=== PATIENT | male | born 1955 | race Two or more races ===

== ENCOUNTER 2018-03-18 13:47 | Observation (INO) | payer BC ==
[~2018-03-18] VITALS: Ht 167.6 cm; Wt 95.3 kg
[~2018-03-18 13:47] MED LIST: FLAGYL250 MG PO; LEVAQUIN500 MG PO; TYLENOL WITH C1 EACH PO
[2018-03-18] MEDS ORDERED: SODIUM CHLORIDE 0.9% 1000ML 1,000 ML IV STA (14:00)
[2018-03-18] MEDS ORDERED: ONDANSETRON HCL INJ 2 MG/ML VIAL IV STA (14:00)
[2018-03-18] MEDS ORDERED: MORPHINE SULFATE INJ 4 MG/ML INJ IV STA (14:00)
[2018-03-18] MEDS ORDERED: DIATRIZOATE MEGL/DIATRIZOA SOD 30 ML BTL PO ONE (14:06)
[2018-03-18 14:27] LABS: CLARITY,URINE SL CLOUDY (CLEAR); COLOR,URINE YELLOW (YELLOW); KETONES,URINE TRACE (NEGATIVE); LEUKOCYTE ESTERASE ,URINE TRACE (NEGATIVE); NITRITE,URINE NEGATIVE (NEGATIVE); PROTEIN,URINE DIPSTICK 2+ (NEGATIVE)
[2018-03-18 14:28] LABS: BILIRUBIN,URINE 1+ (NEGATIVE); URINE UROBILINOGEN 1 mg/dL (0.2 - 1)
[2018-03-18 14:43] LABS: BACTERIA,URINE MODERATE /HPF; EPITHELIAL CELLS,URINE FEW /LPF; MUCUS,URINE MANY (RARE); WBC,URINE (MAN) 21-50 /HPF (0-5)
--- NOTE | 2018-03-18 14:50 | Diagnostic Imaging Report ---
Examination: Single AP view of the chest. COMPARISON: None INDICATION: Abdominal pain DISCUSSION: Lines/tubes: None. Lungs: Central venous congestion. No edema. No pneumonia. Pleura: No pleural effusion or pneumothorax. Heart and mediastinum: Prominent heart size. Mildly tortuous aorta. Bones and soft tissues: No acute bony abnormalities. IMPRESSION: 1. No acute cardiopulmonary abnormalities. Signed by: Dr. Reg Méndez M.D. on 03/18/2018 2:47 PM
[2018-03-18 15:03] LABS: BASOPHILS % 0.2 % (0.0-1.0); EOSINOPHILS % 0.2 % (0.0-6.0); HEMATOCRIT 56.3 % (38.2-49.6); HEMOGLOBIN 17.7 g/dL (14.0-18.0); LYMPHOCYTES # (AUTO) 1.2 (1.0-3.2); LYMPHOCYTES % 10.7 % (18.0-39.1); MEAN CORPUSCULAR HGB CONC 31.4 g/dL (31-35); MEAN CORPUSCULAR VOLUME 69.9 fL (81-99); MONOCYTES % 8.7 % (4.4-11.3); NEUTROPHILS % 79.9 % (38.7-80.0); PLATELET COUNT 209 x10e3/uL (140-360); RED BLOOD COUNT 8.05 x10e6/uL (4.3-5.7); RED CELL DISTRIBUTION WIDTH 18.8 % (11.7-14.4)
[2018-03-18 15:18] LABS: INR 0.96; PROTHROMBIN TIME 13.7 seconds (11.9-14.5)
[2018-03-18 15:19] LABS: PARTIAL THROMBOPLASTIN TIME 28.3 seconds (23.8-35.5)
[2018-03-18 15:30] LABS: ALANINE AMINOTRANSFERASE 19 IU/L (0-55); ALBUMIN 3.9 g/dL (3.5-5.0); ALBUMIN/GLOBULIN RATIO 1.1 (0.8-2.0); ALKALINE PHOSPHATASE 62 IU/L (40-150); ANION GAP 16.1 mmol/L (8-16); BLOOD UREA NITROGEN 19 mg/dL (7-26); BUN/CREATININE RATIO 22 (6-25); CALCIUM 9.8 mg/dL (8.4-10.2); CARBON DIOXIDE 22 mmol/L (22-29); CHLORIDE 105 mmol/L (98-107); CREATINE KINASE 120 IU/L (30-200); CREATININE, SERUM 0.86 mg/dL (0.72-1.25); EST GLOMERULAR FILTRATION RATE > 60 ML/MIN (60-); GLUCOSE 115 mg/dL (74-118); LIPASE 9 U/L (8-78); MAGNESIUM 2.2 MG/DL (1.3-2.1); POTASSIUM 4.1 mmol/L (3.5-5.1); SODIUM 139 mmol/L (136-145)
[2018-03-18 15:39] LABS: B-TYPE NATRIURETIC PEPTIDE2 53.5 pg/mL (0-100)
[2018-03-18] MEDS ORDERED: HYDRALAZINE HCL 20 MG/ML VIAL IV STA (16:22)
[2018-03-18] MEDS ORDERED: MORPHINE SULFATE 2 MG/ML SYR IV PRN (17:30)
[2018-03-18] MEDS ORDERED: LEVOFLOXACIN 500MG/D5W 100ML IV SCH (17:30)
[2018-03-18] MEDS ORDERED: ONDANSETRON HCL INJ 2 MG/ML VIAL IV PRN (17:30)
[2018-03-18] MEDS: SODIUM CHLORIDE 0.9% 1000ML 1,000 ML IV SCH (18:07)
[2018-03-18] MEDS ORDERED: METOPROLOL TARTRATE INJ 1 MG/ML VIAL ONE (18:18)
[2018-03-18] MEDS ORDERED: MORPHINE SULFATE INJ 4 MG/ML INJ IV PRN (18:30)
[2018-03-18] MEDS ORDERED: METOPROLOL TARTRATE INJ 1 MG/ML VIAL IV ONE (18:30)
[2018-03-18] MEDS ORDERED: IOPAMIDOL 370 MG/ML 200 ML INFUS..BTL INJ ONE (18:31)
[2018-03-18] MEDS ORDERED: SODIUM CHLORIDE 0.9% 50ML 50 ML ONE (18:31)
--- NOTE | 2018-03-18 18:58 | Diagnostic Imaging Report ---
EXAM: CT Abdomen and Pelvis WITH contrast INDICATION: \S\r/o sbo COMPARISON: CT abdomen and pelvis 12/26/2016. 01/31/2016. TECHNIQUE: Abdomen and pelvis were scanned utilizing a multidetector helical scanner from the lung base to the pubic symphysis after administration of IV contrast. Coronal and sagittal reformations were obtained. Routine protocol was performed. Scan was performed when during portal venous phase. IV CONTRAST: 100 mL of Isovue 370 ORAL CONTRAST: Minimal Gastrografin is visualized. COMPLICATIONS: None RADIATION DOSE: Total DLP: 793.74 mGy*cm Estimated effective dose: (DLP x 0.015 x size factor) mSv CTDIvol has been reviewed. It is below the limits set by the Radiation Protocol Committee (RPC). FINDINGS: LINES and TUBES: None. LOWER THORAX: There is bibasilar atelectasis. HEPATOBILIARY: Postoperative changes of right hepatectomy. No focal hepatic lesions. No biliary ductal dilation. GALLBLADDER: No radio-opaque stones or sludge. No wall thickening. SPLEEN: No splenomegaly. PANCREAS: No focal masses or ductal dilatation. ADRENALS: No adrenal nodules KIDNEYS/URETERS: Kidneys enhance symmetrically. No hydronephrosis. 0.8 cm cyst in the inferior pole of the right kidney. No stones. GI TRACT: Stable postoperative changes of right hemicolectomy at the mid transverse colon. Small bowel obstruction with bowel measuring up to 4 cm in diameter. Transition point is in the right upper quadrant adjacent to the right hepatectomy margin (series 2, image 14) with wall thickening. The bowel distally are decompressed. Questionable trace fluid in the right anterior abdomen. Sigmoid colonic diverticula without evidence of diverticulitis. PELVIC ORGANS/BLADDER: Prostate measures 5.2 cm in transverse dimension. Bladder is normal. LYMPH NODES: No lymphadenopathy. , VESSELS: Unremarkable. PERITONEUM / RETROPERITONEUM: No free air or fluid. BONES: There are degenerative changes in the lumbar spine. SOFT TISSUES: Anterior abdominal wall hernia with a mesh. IMPRESSION: 1. Right hepatectomy and right hemicolectomy. 2. Small bowel obstruction with transition point in the small bowel loops in the right upper quadrant abdomen and adjacent to the hepatectomy bed. This may represent focal adhesion/bowel obstruction. This focal area of narrowing was seen on previous CT 12/26/2016. Signed by: Dr. Dung Rosas M.D. on 03/18/2018 6:54 PM
[2018-03-18] MEDS ORDERED: ATENOLOL25 MG PO (19:23)
[2018-03-18] MEDS ORDERED: LIDOCAINE VISC 2% SOLN 15 ML UDC TOP ONE (21:00)
[2018-03-18] MEDS ORDERED: BENZOCAINE/TETRACAINE/BUTAMBEN AERO SPRAY 56 GM CAN TOP ONE (21:00)
[2018-03-18] MEDS ORDERED: LORAZEPAM INJ 2 MG/ML VIAL IV ONE (21:30)
[2018-03-18 21:50] VITALS: BP 183/99
[2018-03-18 22:00] VITALS: BP 143/82
[2018-03-18 23:27] VITALS: BP 143/82
[2018-03-19] VITALS (7 sets, daily range): BP systolic 128–131; BP diastolic 73–80
[2018-03-19] MEDS: SODIUM CHLORIDE 0.9% 1000ML 1,000 ML IV SCH ×2 (01:20→09:20)
[2018-03-19 05:50] LABS: BASOPHILS % 0.2 % (0.0-1.0); EOSINOPHILS # (AUTO) 0.1 (0.0-0.4); EOSINOPHILS % 1.3 % (0.0-6.0); HEMATOCRIT 51.7 % (38.2-49.6); LYMPHOCYTES # (AUTO) 1.5 (1.0-3.2); MEAN CORPUSCULAR HGB CONC 30.9 g/dL (31-35); MEAN CORPUSCULAR VOLUME 71.1 fL (81-99); MONOCYTES # (AUTO) 0.8 (0.2-0.8); MONOCYTES % 12.4 % (4.4-11.3); NEUTROPHILS % 62.9 % (38.7-80.0); PLATELET COUNT 160 x10e3/uL (140-360); RED CELL DISTRIBUTION WIDTH 18.6 % (11.7-14.4)
[2018-03-19 06:04] LABS: RED BLOOD COUNT 7.27 x10e6/uL (4.3-5.7)
--- NOTE | 2018-03-19 06:35 | Diagnostic Imaging Report ---
EXAM: ABDOMEN ACUTE SERIES W/PA CXR DATE: 03/19/2018 7:00 AM Time stamp on exam: 1:08 AM. The study is only now available for interpretation at 6:30 AM. INDICATION: Small bowel obstruction COMPARISON: CT of the abdomen on 03/18/2018 FINDINGS: LINES/TUBES: None BOWEL PATTERN: No evidence for obstruction. However, a few nondilated small bowel loops are visualized with air-fluid level suggestive of ileus in the appropriate clinical context SOFT TISSUES: No abnormal calcifications. No mass effect. LUNGS: Bibasilar atelectasis BONES: No acute findings. IMPRESSION: Few small bowel loops appear prominent with air-fluid levels in the right upper quadrant suggestive of ileus. However, findings on CT of 03/18/2018 are clearly more sensitive and specific for small bowel obstruction Signed by: Dr. Froy Murillo M.D. on 03/19/2018 6:32 AM
[2018-03-19 07:35] LABS: ALANINE AMINOTRANSFERASE 16 IU/L (0-55); ALBUMIN 3.4 g/dL (3.5-5.0); ALKALINE PHOSPHATASE 52 IU/L (40-150); ANION GAP 12.2 mmol/L (8-16); BLOOD UREA NITROGEN 19 mg/dL (7-26); BUN/CREATININE RATIO 19 (6-25); CALCIUM 9.1 mg/dL (8.4-10.2); CARBON DIOXIDE 24 mmol/L (22-29); CHLORIDE 107 mmol/L (98-107); CREATININE, SERUM 1.02 mg/dL (0.72-1.25); EST GLOMERULAR FILTRATION RATE > 60 ML/MIN (60-); GLUCOSE 103 mg/dL (74-118); POTASSIUM 4.2 mmol/L (3.5-5.1); SODIUM 139 mmol/L (136-145)
[2018-03-19] MEDS ORDERED: PANTOPRAZOLE 40 MG 10ML VIAL IV SCH (09:00)
== END 2018-03-19 15:15 | disposition home or self-care (01) ==
LOC: ER 13:47 → INTOOBSV 17:20 → ERHOLD 17:20 → MED/SURG 21:29
DX: K56.601 Complete intestinal obstruction, unspecified as to cause (principal); N39.0 Urinary tract infection, site not specified; Z85.038 Personal history of other malignant neoplasm of large intestine; Z85.05 Personal history of malignant neoplasm of liver
CPT/HCPCS: 36415 ×2; 71045; 74022; 74177; 80053 ×2; 81001; 82550; 82553; 83605; 83690; 83735; 83880; 84484; 85025 ×2; 85610; 85730; 87040; 87086; 93005; 99285; G0378 ×2; J1956; J2060; J2270 ×2; J2405; J7030 ×2; Q9967